=== PATIENT | male | born 1975 | race Caucasian/White ===

== ENCOUNTER 2024-12-02 14:05 | Outpatient (CLI) | payer BC | END 2024-12-02 14:06 | disposition home or self-care (01) | LOC: CSHRAD 14:05 | PROVIDERS: ATTEND Nurse Practitioner Family | DX: M54.50 Low back pain, unspecified (principal); M47.816 Spondylosis without myelopathy or radiculopathy, lumbar region | CPT/HCPCS: 72100 ==